=== PATIENT | female | born 1960 | race Caucasian/White ===

== ENCOUNTER 2020-05-01 07:25 | Day surgery (SDC) | payer OTHER ==
[2020-04-22 09:46] VITALS: BMI 31.0
[2020-05-01] MEDS ORDERED: LIDOCAINE HCL/PF 2% SDV 5ML VIAL ONE (07:56)
[2020-05-01] MEDS ORDERED: PROPOFOL 20 ML ONE ×3 (07:56)
[2020-05-01 09:35] VITALS: BP 112/70; PULSE 67; TEMP 97.9
== END 2020-05-01 09:35 | disposition home or self-care (01) ==
LOC: FASU-ENDO 07:25
PROVIDERS: ATTEND Internal Medicine Gastroenterology
PROC: 0DJD8ZZ Inspection of Lower Intestinal Tract, Via Natural or Artificial Opening Endoscopic (ICD-10-PCS; principal; 2020-05-01 08:26)
DX: Z12.11 Encounter for screening for malignant neoplasm of colon (principal); K57.30 Diverticulosis of large intestine without perforation or abscess without bleeding; K64.8 Other hemorrhoids

== ENCOUNTER 2020-11-29 07:30 | Day surgery (SDC) | payer OTHER ==
[2020-11-26 13:42] VITALS: BMI 29.0
[2020-11-29] MEDS ORDERED: ONDANSETRON 4 MG/2 ML VIAL IVPUSH PRN ×2 (08:37→11:16)
[2020-11-29] MEDS ORDERED: LACTATED RINGERS SOLUTION 1,000 ML IV SCH (08:45)
[2020-11-29] MEDS ORDERED: ROCURONIUM BROMIDE 50 MG/5 ML SYRINGE ONE (09:01)
[2020-11-29] MEDS ORDERED: PROPOFOL 20 ML ONE ×2 (09:01)
[2020-11-29] MEDS ORDERED: fentaNYL CITRATE 250 MCG/5 ML VIAL ONE (09:01)
[2020-11-29] MEDS ORDERED: MIDAZOLAM HCL 2 MG/2 ML SINGLE DOSE VIAL ONE (09:01)
[2020-11-29] MEDS ORDERED: BUPIVACAINE HCL/PF 0.25% (2.5MG/ML) 10 ML VIAL ONE (09:05)
[2020-11-29] MEDS ORDERED: ceFAZolin SODIUM 1 GM VIAL ONE (09:42)
[2020-11-29] MEDS ORDERED: DEXAMETHASONE SOD PHOSPHATE 4 MG/1 ML VIAL ONE ×2 (09:47→11:02)
[2020-11-29] MEDS ORDERED: ONDANSETRON 4 MG/2 ML VIAL ONE ×2 (09:47→11:02)
[2020-11-29] MEDS ORDERED: BUPIVACAINE HCL/PF 0.25% (2.5MG/ML) 10 ML VIAL IJ ONE (10:57)
[2020-11-29] MEDS ORDERED: NEOSTIGMINE METHYLSULFATE 0.5 MG/1 ML - 10 ML MDV ONE (10:58)
[2020-11-29] MEDS ORDERED: GLYCOPYRROLATE 0.2 MG/1 ML VIAL ONE (10:58)
[2020-11-29] MEDS ORDERED: KETOROLAC TROMETHAMINE 30 MG/1 ML VIAL ONE (10:59)
[2020-11-29] MEDS ORDERED: oxyCODONE HCL 5 MG TABLET PO PRN (11:16)
[2020-11-29] MEDS ORDERED: ENOXAPARIN NA (PORCINE) 40 MG/0.4 ML DISP.SYRIN SQ ONE (11:16)
[2020-11-29] MEDS ORDERED: PROMETHAZINE HCL 25 MG/1 ML VIAL IVPB ONE (11:20)
[2020-11-29] MEDS ORDERED: ACETAMINOPHEN 1000 MG/100 ML VIAL (NON FORMULARY) IVPB ONE (11:25)
[2020-11-29] MEDS ORDERED: FAMOTIDINE 20 MG/50 ML IVPB 20 MG/50 ML MG IVPB SCH (11:30)
[2020-11-29] MEDS ORDERED: SODIUM CHLORIDE 1,000 ML IV SCH (11:30)
[2020-11-29] MEDS ORDERED: PROMETHAZINE HCL 25 MG/1 ML VIAL ONE ×2 (12:00→12:44)
[2020-11-29] MEDS ORDERED: ENOXAPARIN NA (PORCINE) 30 MG/0.3 ML DISP.SYRIN SQ SCH (14:00)
[2020-11-29 15:46] VITALS: BP 120/58; PULSE 66; TEMP 97
== END 2020-11-29 15:46 | disposition home or self-care (01) ==
LOC: FASU 07:30
PROVIDERS: ATTEND Surgery
PROC: 0WP Anatomical Regions, General, Removal (ICD-10-PCS; principal; 2020-11-29 09:56)
DX: K95.09 Other complications of gastric band procedure (principal); R10.9 Unspecified abdominal pain; R11.10 Vomiting, unspecified; Z98.84 Bariatric surgery status; Y83.8 Other surgical procedures as the cause of abnormal reaction of the patient, or of later complication, without mention of misadventure at the time of the procedure
CPT/HCPCS: 88300-TC; 94760; J0131